=== PATIENT | female | born 1955 | race Caucasian/White ===

== ENCOUNTER → 2017-07-16 | Day surgery (SDC) | payer OTHER | END | disposition home or self-care (01) | LOC: FRADUS-SUR 10:30 | PROVIDERS: ATTEND Surgery Surgical Oncology | PROC: 0HBT3ZX Excision of Right Breast, Percutaneous Approach, Diagnostic (ICD-10-PCS; principal; 2017-07-16) | DX: N60.81 Other benign mammary dysplasias of right breast (principal); N63.10 Unspecified lump in the right breast, unspecified quadrant | CPT/HCPCS: 19085; A4648; G0206-TC ==

== ENCOUNTER 2017-07-20 08:32 | Day surgery (SDC) | payer OTHER ==
[2017-07-15 10:51] VITALS: BMI 36.2
--- NOTE | 2017-07-19 10:13 | HP ---
Admitting History and Physical - Primary Care Physician PCP: Harish Mittal - Admission Chief Complaint: right breast cancer History of Present Illness: 61 yo female underwent a mammo and US ( and 05/2017) which revealed a right 1.6 cm mass at the 1 oclock position. Patient underwent an US core bx which was positive for low-grade infiltrating ductal cancer. ER and [place] positive Her 2 negative. MRI done showed known cancer as well as a nonenhancing mass (not seen on focuses US). Patient underwent an MRI guided core bx of this lesion which was negative as per pathology. Patient is now to undergo a right breast WE with NL, SNBx, possible ANdx with lympho. History Source: Patient Limitations to Obtaining History: No Limitations, Language Barrier (speaks Georgian) - Past Medical History Cardiovascular: Yes: Hyperlipdemia Pulmonary: Yes: Asthma, COPD Psych: Yes: Anxiety, Depression Endocrine: Yes: Diabetes Mellitus Additional Past Medical History: fatty liver - Past Surgical History Past Surgical History: Yes: Joint Replacement (left total knee), Tubal Ligation Additional Past Surgical History: right knee surgery 2017 gastric sleeve surgery 2012 carpal tunnel repair 2009 - Smoking History Smoking history: Current every day smoker Have you smoked in the past 12 months: Yes Aproximately how many cigarettes per day: 20 - Alcohol/Substance Use Hx Alcohol Use: No Home Medications - Allergies Allergies/Adverse Reactions: Allergies Allergy/AdvReac Type Severity Reaction Status Date / Time No Known Allergies Allergy Verified 07/04/15 20:08 - Home Medications Home Medications: Ambulatory Orders Oxycodone HCl/Acetaminophen [Percocet 5/325 -] 2 tab PO Q4H 07/04/15 Oxycodone Sr [Oxycontin -] 0 mg PO BID 07/04/15 Family Disease History - Family Disease History Family Disease History: CA: Father (head and neck cancer), Mother (gastric cancer) Other Family History: nephew-gastric cancer at 23. nephew-renal cancer at 31 Review of Systems - Review of Systems Constitutional: reports: No Symptoms Cardiovascular: reports: No Symptoms Respiratory: reports: No Symptoms Physical Examination Constitutional: Yes: Well Nourished, Calm Breast(s): Yes: Other (Patient has ptotic D-cup breast with a palpable right 2 oclock mass. No other skin changes, masses or adenopathy noted bilaterally.) Problem List - Problems (1) Breast cancer, right Code(s): C50.911 - MALIGNANT NEOPLASM OF UNSP SITE OF RIGHT FEMALE BREAST Qualifiers: Breast location: upper inner quadrant of breast Assessment/Plan Right breast WE with NL, snbx, possible andx, lymphoscintogram
[2017-07-20] MEDS ORDERED: LIDOCAINE HCL 1%, 10 MG/ML (20ML VIAL) ONE (14:46)
[2017-07-20] MEDS ORDERED: BUPIVACAINE HCL/PF 2.5 MG/ML - 30 ML VIAL IJ ONE (14:46)
[2017-07-20] MEDS ORDERED: MIDAZOLAM HCL 2 MG/2 ML SINGLE DOSE VIAL ONE (14:52)
[2017-07-20] MEDS ORDERED: PROPOFOL 20 ML ONE (14:53)
[2017-07-20] MEDS ORDERED: SUCCINYLCHOLINE CHLORIDE 200 MG/10 ML VIAL ONE (14:54)
[2017-07-20] MEDS ORDERED: ISOSULFAN BLUE 10 MG/ML VIAL SQ ONE (14:57)
[2017-07-20] MEDS ORDERED: ALBUTEROL SO4 18 GM HFA INHALER IH ONE (15:06)
[2017-07-20] MEDS ORDERED: ePHEDrine SULFATE 50 MG/1 ML AMPULE ONE (15:35)
[2017-07-20] MEDS ORDERED: DEXAMETHASONE SOD PHOSPHATE 4 MG/1 ML VIAL ONE (15:37)
[2017-07-20] MEDS ORDERED: ONDANSETRON 4 MG/2 ML VIAL ONE (15:37)
[2017-07-20] MEDS ORDERED: ceFAZolin SODIUM 1 GM VIAL ONE (15:37)
[2017-07-20] MEDS ORDERED: HYDROmorphone HCL/PF 1 MG/ML VIAL (FOR PYXIS CHARGING ONLY) ONE ×2 (15:41→15:57)
[2017-07-20] MEDS ORDERED: ONDANSETRON 4 MG/2 ML VIAL IVPUSH PRN (16:36)
[2017-07-20] MEDS ORDERED: oxyCODONE HCL 5 MG TABLET PO PRN ×2 (16:36)
[2017-07-20] MEDS ORDERED: LACTATED RINGERS SOLUTION 1,000 ML IV SCH (16:45)
[2017-07-20] MEDS ORDERED: ONDANSETRON 4 MG/2 ML VIAL IVPB PRN (17:36)
[2017-07-20] MEDS ORDERED: KETOROLAC TROMETHAMINE 30 MG/1 ML VIAL IVPUSH PRN (17:36)
[2017-07-20] MEDS ORDERED: KETOROLAC TROMETHAMINE 30 MG/1 ML VIAL ONE (17:45)
[2017-07-20] MEDS ORDERED: DEXTROSE 5%-0.45% SALINE 1,000 ML IV SCH (17:45)
[2017-07-20 17:58] VITALS: TEMP 98.2
[2017-07-20] MEDS ORDERED: oxyCODONE HCL 5 MG TABLET ONE (18:23)
[2017-07-20 19:40] VITALS: BP 116/84; PULSE 87
--- NOTE | 2017-07-20 20:02 | OP ---
DATE OF OPERATION: 07/20/2017 PREOPERATIVE DIAGNOSIS: Right breast upper inner quadrant breast cancer. POSTOPERATIVE DIAGNOSIS: Right breast upper inner quadrant breast cancer. PROCEDURE: Right breast partial mastectomy with mammograph and needle localization with right axillary sentinel lymph node biopsy and tissue transfer closure. ANESTHESIA: General laryngeal mask airway anesthesia. PRIMARY SURGEON: Abhijit Mittal M.D. CREATIVE SERVICES WRITER: Nisha Centeno COMPLICATIONS: There were no complications. Briefly, the patient is a 61-year-old G7, P6, postmenopausal female of descent. She has no family history of breast or ovarian cancer. Her mother from gastric cancer at age 51, and she has a nephew who had gastric cancer at age 23. Another nephew from renal cell cancer at age 31, and her father from throat cancer. The patient was found to have an abnormal mammography with a density in the upper inner aspect of the right breast measuring about 1.6 cm on mammography and ultrasound from April 2018. Ultrasound guided core biopsy on June 09, 2017, showed a low grade infiltrating ductal cancer which was ER/FL positive and HER2/blaise negative with a low Ki-67. MRI showed a separate density in the 3 o'clock region of the right breast, and MRI guided core biopsy of that density turned out to be benign. The patient was advised of undergoing a right breast wide excision with sentinel lymph node biopsy and was brought in for the surgery on July 20, 2017. She underwent a needle localization and lymphoscintigraphy at [facility] and was brought to the [place] holding area. In the holding area, site verification was made, and informed consent was obtained. She was brought into the operating room and laid on the OR table in a supine position. Venodynes were placed on the lower extremities prior to induction. She received a gram of Ancef prior to incision. The right breast was sterilely prepped and draped in usual fashion with the wire prepped in the field. Then 3 mL of Lymphazurin blue were injected intradermally and peritumorally around the needle localization site. Massage was instituted. The sentinel lymph node biopsy was first performed. An incision was made to expose the hair bearing area of the right axilla, and dissection was undertaken using the gamma counter for directed dissection. Blue lymphatics were easily seen coursing the first node which is blue but was not hot. This was sent for permanent section in formalin to pathology. The second node was then found in a level 1 region which was blue and hot labeled sentinel lymph number 2 with a 10-second gamma count of 4506. A third sentinel lymph node was found in the level 2 region of the right axilla which was blue and hot with a 10-second gamma count of 2693. Background counts after removal of these 3 nodes was 660. There was no specific hot area. Hemostasis was achieved, and the axillary wound was closed using interrupted 2-0 plain suture, then interrupted 3-0 deep dermal Vicryl suture, and a running 4-0 subcuticular Biosyn suture. At this point, the wide excision was undertaken around the upper inner aspect of the right breast to a periareolar incision removing a small ellipse of skin. Skin flap was raised superiorly towards the upper inner quadrant. Dissection was undertaken around the needle localization site, all the way down to the pectoralis major muscle. The specimen was completely removed with the wire intact in the middle of the specimen. The specimen was oriented with a long lateral short superior suture, and specimen radiograph showed removal of the clip in question. Hemostasis was achieved. Separate margins were then taken on the superior, inferior, medial, lateral, deep aspects with sutures marked on the biopsy cavity side; these were all sent separately to pathology in formalin as margins. At this point, the 3 x 4 cm tissue transfer closure was accomplished by undermining the breast tissue and bringing it into the wound I reapproximated the breast tissue with 2-0 plain suture. The skin was then closed using interrupted 3-0 deep dermal Vicryl suture and a running 4-0 subcuticular Monocryl suture. Mastisol Steri-Strips were applied over the wounds, compressive dressing placed over this. She was placed in a surgical bra postoperatively. The patient tolerated the procedure well without difficulty, and laryngeal mask airway tube was removed at the end of the case. She will be recovered and discharged home the same day when discharge criteria are met. She will be followed up in the office in 1 week for formal wound pathology check. All sponge, needle counts were correct at the end of the case, and estimated blood loss was about 20 mL. She was hemodynamically stable throughout. ABHIJIT MITTAL M.D. [id number]
--- NOTE | 2017-07-23 11:23 | PATH ---
Surgical Pathology Report Patient Name: [facility]N LOPE[facility]. Rec. #: [id number] /Age/Gender: 1955 (Age: 61) / F Account: [id number] Location: [facility] AMBULATORY Taken: 07/20/2017 Received: 07/20/2017 Reported: 07/23/2017 Physicians: Harish Mittal M.D. Specimen(s) Received A: RIGHT SENTINEL LYMPH NODE #1 B: RIGHT SENTINEL LYMPH NODE #2 C: RIGHT SENTINEL LYMPH NODE #3 D: RIGHT BREAST WIDE EXCISION E: RIGHT BREAST SUPERIOR MARGIN F: RIGHT BREAST MEDIAL MARGIN G: RIGHT BREAST LATERAL MARGIN H: RIGHT BREAST INFERIOR MARGIN I: RIGHT BREAST DEEP MARGIN Clinical History Invasive right breast upper inner quadrant low grade cancer, IDC Final Diagnosis A. LYMPH NODE, RIGHT SENTINEL #1, EXCISION: ONE LYMPH NODE, NEGATIVE FOR METASTATIC CARCINOMA (0/1). B. LYMPH NODE, RIGHT SENTINEL #2, EXCISION: ONE LYMPH NODE, NEGATIVE FOR METASTATIC CARCINOMA (0/1). C. LYMPH NODE, RIGHT SENTINEL #3, EXCISION: ONE, NEGATIVE FOR METASTATIC CARCINOMA (0/1). D. BREAST, RIGHT, EXCISION: INVASIVE DUCTAL CARCINOMA, WELL DIFFERENTIATED (TUBULE SCORE: 1/3, NUCLEAR GRADE: 2/3, MITOTIC SCORE: 2/3; TOTAL VERONIQUE SCORE: 5/9). INVASIVE CARCINOMA MEASURES 1.9 CM IN GREATEST DIMENSION, MICROSCOPICALLY. FOCAL DUCTAL CARCINOMA IN SITU (DCIS), CRIBRIFORM TYPE, INTERMEDIATE GRADE. SURGICAL MARGINS ARE UNINVOLVED BY CARCINOMA; CARCINOMA IS AT 7 MM FROM THE CLOSEST (INFERIOR) MARGIN. SEE SPECIMEN E-I FOR FINAL MARGINS. SKIN IS PRESENT AND IS UNINVOLVED BY CARCINOMA. PRIOR BIOPSY SITE CHANGES ARE PRESENT. PATHOLOGIC STAGE (pTNM): pT1c pN0. SEE ALSO INVASIVE CARCINOMA CASE SUMMARY BELOW. E. BREAST, RIGHT, SUPERIOR MARGIN, EXCISION: BENIGN BREAST TISSUE. F. BREAST, RIGHT, MEDIAL MARGIN, EXCISION: BENIGN FIBROADIPOSE TISSUE. G. BREAST, RIGHT, LATERAL MARGIN, EXCISION: DUCTAL CARCINOMA IN SITU (DCIS), CRIBRIFORM AND PAPILLARY TYPE, LOW NUCLEAR GRADE, PRESENT IN ONE OF FOUR SLIDES (1/4). FOCAL ATYPICAL DUCTAL HYPERPLASIA (ADH). THE NEW MARGIN IS UNINVOLVED BY DCIS; DCIS IS AT 4 MM FROM THE FINAL NEW MARGIN. H. BREAST, RIGHT, INFERIOR MARGIN, EXCISION: BENIGN BREAST TISSUE. I. BREAST, RIGHT, DEEP MARGIN, EXCISION: BENIGN FIBROADIPOSE TISSUE. Comments Breast Invasive Carcinoma: Surgical Pathology Cancer Case Summary Based on AJCC/UICC TNM, 7th edition Procedure _X_ Excision with image-guided localization Lymph Node Sampling _X_ [place] lymph node(s) Specimen Laterality _X_ Right Tumor Size: Size of Largest Invasive Carcinoma: 1.9 cm Tumor Focality _X_ Single focus of invasive carcinoma Macroscopic and Microscopic Extent of Tumor Skin _X_ Invasive carcinoma does not invade into the dermis or epidermis Nipple _X_ Not applicable (excisions less than total mastectomy) Ductal Carcinoma In Situ (DCIS) _X_ DCIS is present _X_ as a minor component (< 25% of tumor) Histologic Type of Invasive Carcinoma : _X_ Invasive carcinoma of no special type (ductal, not otherwise specified) Histologic Grade: (Veronique Histologic Score) Tubular Differentiation _X_ Score 1 Nuclear Pleomorphism _X_ Score 2 Mitotic Rate _X_ Score 2 Overall Grade _X_ Grade 1 (well- differentiated) Margins _X_ Margins uninvolved by invasive carcinoma Distance from closest margin: 7 mm from closest inferior margin in wide excision D. Final inferior margin (H) is negative for carcinoma. _X_ Margins uninvolved by DCIS Distance from closest margin: 4 mm from closest final lateral margin (G) Lymph-Vascular Invasion _X_ Not identified Lymph Nodes Total number of lymph nodes examined (sentinel and nonsentinel): 3 Number of sentinel lymph nodes examined: 3 Number of lymph nodes with macrometastases ( > 2 mm): 0 Number of lymph nodes with micrometastases (>0.2 mm to 2 mm and/or >200cells):0 Number of lymph nodes with isolated tumor cells (=0.2 mm and =200 cells): 0 Size of largest metastatic deposit (if present): 0 Extranodal Extension _X_ Not applicable Pathologic Staging (pTNM) Primary Tumor (Invasive Carcinoma): pT1c Regional Lymph Nodes (pN): pN0 (sn) Biomarker Studies Results of ER, NM, Her2 & Ki67 studies will be reported separately in an addendum. Electronically Signed Ara Crain M.D. Addendum Reported: 07/26/2017 Addendum Diagnosis Results of ER, NM, Her2 (IHC) & Ki-67 studies performed on block D1 at [place], [place] ([id number] ) are as follows: ER (clone [id number] mouse monoclonal antibody by [employer]) : >95 % nuclear staining with moderate to strong intensity (Positive). NM (clone16 mouse monoclonal antibody by [employer]) : > 95 % nuclear staining with strong intensity (Positive). Her2 IHC (EP3 from [employer], formerly known as [id number], using [employer] Polymer Refine detection kit): 0 (Negative). Ki-67: ~10% (Low proliferative index). Positive and negative controls (internal if applicable) show appropriate results. Formalin fixation time is within current ASCO/CAP recommendations for ER, NM and Her2 testing. Time to formalin fixation is not given. Ara Crain M.D. Gross Description A. Received in formalin labeled "right sentinel node #1," is a 2.0 x 1.6 x 0.9 cm almanza, irregular lymph node. The specimen is trisected and entirely submitted in 2 cassettes. B. Received in formalin labeled "right sentinel node #2," is a 1.8 x 1.5 x 0.9 cm almanza, irregular lymph node with attached fat. The specimen is trisected and entirely submitted in 3 cassettes. C. Received in formalin labeled "right sentinel node #3," is a 1.0 x 0.8 x 0.6 cm almanza, irregular lymph node with attached fat. The specimen is bisected and entirely submitted in one cassette. D. Received in formalin, labeled "right breast wide excision," is a 6.5 x 5.7 x 5.0 cm. almanza-yellow, irregular, portion of fibroadipose tissue with a needle localization wire present. There is a short suture marking the superior aspect and a long suture marking the lateral aspect, per the surgeon. The anterior surface displays a 2.3 x 0.5 cm almanza, elliptical, unremarkable portion of skin. The specimen is inked as follows: Superior blue; inferior green; lateral red; medial yellow; deep black. The specimen is serially sectioned from anterior to deep. Sectioning reveals a 2.0 x 1.8 x 1.8 cm almanza, firm mass at 0.5 cm from the inferior margin, 1.0 cm from the superior margin and 1.3 cm from the medial margin. The remaining breast parenchyma displays foci of white fibrous tissue. Taffy Puller sections are submitted in 9 cassettes as follows: 1-2-one full-face section of mass each (each with inferior margin); 3-5-uocnarki margin; 5-medial margin; 2-7-pxqpcxmvac fibrous tissue with lateral margin; 8-skin; 9-deep margin. Time to formalin fixation: Not given Total formalin fixation time: Approximately 24 hours E. Received in formalin labeled "right breast superior margin," is a 3.0 x 2.0 x 0.7 cm irregular portion of fibroadipose tissue with a suture marking the biopsy cavity side, per the surgeon. The new margin is inked black and the specimen is serially sectioned. The specimen is entirely submitted in 3 cassettes. F. Received in formalin labeled "right breast medial margin," is a 1.7 x 1.5 x 0.7 cm irregular portion of fibroadipose tissue with a suture marking the biopsy cavity side, per the surgeon. The new margin is inked black and the specimen is serially sectioned. The specimen is entirely submitted in 2 cassettes. G. Received in formalin labeled "right breast lateral margin," is a 2.8 x 2.5 x 1.0 cm irregular portion of fibroadipose tissue with a suture marking the biopsy cavity side, per the surgeon. The new margin is inked black and the specimen is serially sectioned. The specimen is entirely submitted in 4 cassettes. H. Received in formalin labeled "right breast inferior margin," is a 3.0 x 2.1 x 1.0 cm irregular portion of fibroadipose tissue with a suture marking the biopsy cavity side, per the surgeon. The new margin is inked black and the specimen is serially sectioned. The specimen is entirely submitted in 3 cassettes I. Received in formalin labeled "right breast deep margin," is a 2.8 x 2.3 x 1.0 cm irregular portion of fibroadipose tissue with a suture marking the biopsy cavity side, per the surgeon. The new margin is inked black and the specimen is serially sectioned. The specimen is entirely submitted in 3 cassettes. DL07/21/2017 saudi07/21/2017
== END 2017-07-20 17:35 | disposition home or self-care (01) ==
LOC: FASU 08:32
PROVIDERS: ATTEND Surgery Surgical Oncology
PROC: 0HBT0ZZ Excision of Right Breast, Open Approach (ICD-10-PCS; principal; 2017-07-20 15:49)
PROC: 0JX60ZB Transfer Chest Subcutaneous Tissue and Fascia with Skin and Subcutaneous Tissue, Open Approach (ICD-10-PCS; 2017-07-20 15:49)
DX: C50.211 Malignant neoplasm of upper-inner quadrant of right female breast (principal)
CPT/HCPCS: 19281; 78195-TC; 88307-TC; 94760; A9541

== ENCOUNTER 2017-12-28 09:06 | Day surgery (SDC) | payer OTHER ==
[2017-12-27 11:10] VITALS: BMI 35.9
[~2017-12-28 09:06] MED LIST: CYCLOPENTOLATE HCL 1% OPHTH SOLN 2 ML BOTTLE OP SCH; MOXIFLOXACIN HCL 0.5% OPHTHALMIC 3 ML BOTTLE OP SCH; PHENYLEPHRINE 2.5% OPHTH SOLN 15 ML BOTTLE OP SCH; TOBRAMYCIN/DEXAMETHASONE OPHTH. OINTMENT 1 TUBE TP ONE; TROPICAMIDE 1% OPHTH SOLN 15 ML BOTTLE OP SCH
[2017-12-28] MEDS: PHENYLEPHRINE 2.5% OPHTH SOLN 15 ML BOTTLE ONE ×3 (10:00→10:28)
[2017-12-28] MEDS: CYCLOPENTOLATE HCL 1% OPHTH SOLN 2 ML BOTTLE ONE ×3 (10:00→10:28)
[2017-12-28] MEDS: MOXIFLOXACIN HCL 0.5% OPHTHALMIC 3 ML BOTTLE ONE ×3 (10:00→10:28)
[2017-12-28] MEDS: TROPICAMIDE 0.5% OPHTHALMIC SOLN 15 ML BOTTLE ONE ×3 (10:00→10:28)
[2017-12-28 10:05] VITALS: TEMP 98.4
[2017-12-28] MEDS ORDERED: MIDAZOLAM HCL 2 MG/2 ML SINGLE DOSE VIAL ONE (10:35)
--- NOTE | 2017-12-28 11:26 | HP ---
History & Physical Update - History History: No Change (see full history and physical in chart from [facility]) - Physical Physical: No Change (see full history and physical in chart from [facility]) - Assessment Assessment: No Change (see full history and physical in chart from [facility]) - Plan Plan: No Change (see full history and physical in chart from [facility])
[2017-12-28] MEDS ORDERED: TETRACAINE 0.5% OPHTH SOLN 2 ML BOTTLE TP ONE (11:43)
[2017-12-28] MEDS ORDERED: LIDOCAINE HCL 1% PRESERVATIVE FREE - 30ML VIAL IO ONE (11:57)
[2017-12-28] MEDS ORDERED: CHONDROITIN SU A/HYALUR SOD 1 KIT IO ONE (11:59)
[2017-12-28] MEDS ORDERED: TOBRAMYCIN/DEXAMETHASONE OPHTH. OINTMENT 1 TUBE TP ONE (12:16)
[2017-12-28 13:09] VITALS: BP 117/93; PULSE 85
--- NOTE | 2017-12-28 13:54 | OP ---
DATE OF OPERATION: 12/28/2017 SURGEON: Alan Valle MD PREOPERATIVE DIAGNOSIS: Cataract, right eye. OPERATION: Phacoemulsification and intraocular lens implantation, right eye. POSTOPERATIVE DIAGNOSIS: Cataract, left eye. ANESTHESIA: Topical. COMPLICATIONS: None. BLOOD LOSS: None. SPECIMEN: None. BRIEF HISTORY: The patient is a 62-year-old woman with a past medical history of diabetes who presents with decreased vision in the right eye down to 20/70 due to a 2+ nuclear sclerotic lens with posterior subcapsular cataract. After the risks, benefits, and alternatives to cataract surgery were discussed with the patient, she consented to surgery for the left eye. DESCRIPTION OF PROCEDURE: The patient was brought to the operating room and prepped and draped in the usual sterile fashion. An eyelid speculum was inserted in the right eye. A paracentesis was made, and the anterior chamber was inflated with nonpreserved lidocaine. This was followed by injection of Viscoat. A groove was made in the temporal clear cornea, which was tunneled forward with a crescent blade. The anterior chamber was entered with a 2.75 keratome. The cystotome was used to make an incision in the center of the capsule, and a continuous curvilinear capsulorrhexis was created. The lens was hydrodissected until it was found to rotate freely within the capsular bag. Phacoemulsification was then used to remove the lens in its entirety. Irrigation and aspiration was used to remove residual cortical material. The anterior chamber and capsular bag were reinflated with Provisc, and a 23.0 diopter [id number] AcrySof intraocular lens was injected into the capsular bag using the [place] injector. The lens was dialed into place using a [place] hook. Irrigation and aspiration was used to remove residual viscoelastic. The wound was stromally hydrated until it was found to be watertight and the eye was at an appropriate pressure. The eyelid speculum was removed from the eye, and Tobradex drops and a clear shield were placed over the right eye. The patient was transferred to the recovery room in stable condition and will follow up tomorrow. ALAN VALLE M.D. [id number]
== END 2017-12-28 13:18 | disposition home or self-care (01) ==
LOC: JASU-SURG 09:06
PROVIDERS: ATTEND Ophthalmology
PROC: 08RJ3JZ Replacement of Right Lens with Synthetic Substitute, Percutaneous Approach (ICD-10-PCS; principal; 2017-12-28 11:00)
DX: H25.12 Age-related nuclear cataract, left eye (principal)
CPT/HCPCS: 82962